=== PATIENT | female | born 1970 | race Caucasian/White ===

== ENCOUNTER 2018-09-22 01:49 | Emergency (ER) | payer MEDICARE, MEDICAID ==
[~2018-09-22] VITALS: Ht 162.6 cm; Wt 50.8 kg
[2018-09-22 02:15] VITALS: BP 122/90
[2018-09-22] MEDS ORDERED: KETOROLAC 60 MG/2 ML VIAL IM STA (02:20)
--- NOTE | 2018-09-22 02:29 | ED Back Pain ---
General Chief Complaint: Back Problems Stated Complaint: BACK PAIN Nursing Triage Note: Woke up at midnight with severe lower back pain. Pain is shooting down her right leg. Spinal cord stimulator recently placed in June. Nursing Sepsis Screen: No Definite Risk Source of Information: Patient, Family Exam Limitations: No Limitations History of Present Illness Date Seen by Provider: Sep 22, 2018 Time Seen by Provider: 02:15 Initial Comments 48 yr old female with chronic back pain with spinal cord stimulator placed Jun 2018 presents with worsened back pain radiating down right leg since midnight. She is unable to recall any injury or strain recently. She states that she has not had any bowel or bladder function impairment. No fever/chills, N/V, respiratory or other symptoms. She initially stated that she had not had any pain since the stimulator was placed but when I was explaining that we were going to give her a injection of Toradol, she states that she had an injection of Toradol a couple of weeks ago for similar pain. She declines any IV or phlebotomy due to problems with vein access in the past. She states that she had a UTI recently but also declines urine testing. Allergies and Home Medications Allergies Coded Allergies: Sulfa (Sulfonamide Antibiotics) (Verified Allergy, Unknown, 09/22/18) butorphanol (Verified Allergy, Unknown, 09/22/18) codeine (Verified Allergy, Unknown, 09/22/18) Patient Home Medication List Home Medication List Reviewed: Yes Review of Systems Constitutional: see HPI EENTM: no symptoms reported Respiratory: no symptoms reported Cardiovascular: no symptoms reported Gastrointestinal: No abdominal pain, No diarrhea, No dysphagia, No hematemesis , No jaundice, No melena, No nausea, No vomiting Genitourinary: no symptoms reported Musculoskeletal: see HPI Skin: no symptoms reported Psychiatric/Neurological: No Symptoms Reported Past Fbcchsk-Xzusyx-Eenefq Hx Past Med/Social Hx: Reviewed Nursing Past Med/Soc Hx Patient Social History Alcohol Use: Denies Use Recreational Drug Use: No Smoking Status: Current Everyday Smoker Type Used: Cigarettes 2nd Hand Smoke Exposure: Yes Recent Foreign Travel: No Contact w/Someone Who Travel: No Recent Infectious Disease Expo: No Recent Hopitalizations: No Immunizations Up To Date Tetanus Booster (TDap): Less than 5yrs Seasonal Allergies Seasonal Allergies: No Past Medical History Surgeries: Yes Gallbladder, Hysterectomy, Tonsillectomy Respiratory: No Cardiac: No Neurological: Yes Headaches /Migraines : No Hx : 3 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 oz. 50.714278qd; BMI Method:Stated General Appearance: Anxious, Cachetic HEENT: PERRL/EOMI, TMs Normal, Normal ENT Inspection, Pharynx Normal Neck: Full Range of Motion, Normal Inspection, Non Tender, Supple Cardiovascular: Regular Rate, Rhythm, No Edema, No Gallop, No JVD, No Murmur, Normal Peripheral Pulses Respiratory: Chest Non Tender, Lungs Clear, No Accessory Muscle Use, No Respiratory Distress, Decreased Breath Sounds Peripheral Pulses: 2+ Carotid (R), 2+ Carotid (L) Gastrointestinal: Normal Bowel Sounds, No Organomegaly, No Pulsatile Mass, Non Tender, Soft Back: Other (healed midline and right lateral incision. tender to palpation right SI region. 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 as Tested Skin: Normal Color, Warm/Dry Lymphatic: No Adenopathy Progress/Results/Core Measures Results/Orders My Orders Orders - ZAINA DRISCOLL MD Lumbar Spine 2 Or 3 View (09/22/18 02:20) Ketorolac Injection (Toradol Injection) (09/22/18 02:20) Promethazine Injection (Phenergan Injec (09/22/18 02:30) Medications Given in ED Current Medications Medications Dose Ordered Sig/Shea Route Start Time Stop Time Status Last Admin Dose Admin Promethazine HCl 25 mg ONCE ONCE IM 09/22/18 02:30 09/22/18 02:31 DC 09/22/18 02:31 25 MG Vital Signs/I&O 09/22/18 01:59 Temp 97.5 Pulse 94 Resp 20 B/P (MAP) 127/87 (100) Pulse Ox 97 Blood Pressure Mean: 100 Progress Progress Note : Time: 02:31 Progress Note Pt's work up limited by her refusal of blood or urine testing. She does not appear toxic at all. She reports normal functioning of her stimulator. A Butran patch was noted on her flank. Will obtain a plain film to look for any apparent issue with stimulator and give Toradol/Phenergan for current sx. She understands and agrees to limitation and risks of this evaluation based on her wishes. 0300 Pain much improved after Toradol and Phenergan. She would like to go home and follow up with [facility] tomorrow. Diagnostic Imaging Diagonstic Imaging: Xray Plain Films/CT/US/NM/MRI: other (lumbar spine) Comments L/S spine: spinal cord stimulator without apparent acute change. JDO Reviewed: Reviewed by Me Departure Impression Primary Impression: Sciatica Qualified Codes: M54.31 - Sciatica, right side Additional Impression: Chronic back pain Qualified Codes: M54.41 - Lumbago with sciatica, right side; G89.29 - Other chronic pain Disposition: 01 HOME, SELF-CARE Condition: Improved Departure-Patient Inst. Decision time for Depature: 03:04 Patient Instructions: Low Back Pain (DC), Radiculopathy (DC) Add. Discharge Instructions: Follow up with [facility] tomorrow as planned. All discharge instructions reviewed with patient and/or family. Voiced understanding. ZAINA DRISCOLL MD Sep 22, 2018 02:29
[2018-09-22 02:30] VITALS: BP 122/73
[2018-09-22] MEDS ORDERED: PROMETHAZINE INJ 25 MG/ML (PHENERGAN) AMP IM ONE (02:30)
[2018-09-22 03:10] VITALS: BP 100/75
--- NOTE | 2018-09-22 07:06 | Diagnostic Imaging Report ---
INDICATION: Spinal cord stimulator. Back pain. FINDINGS: Stimulator device radiographically appeared unremarkable. Lumbar body heights are maintained. The alignment anatomic. The disc spaces preserved. There is lower lumbar facet arthrosis. Paddles extend to the lower T-spine above the [id number]. IMPRESSION: Lumbar spine itself appeared intact. Partial visualization of stimulator apparatus unremarkable where seen. Dictated by: Dictated on workstation # [id number]
== END 2018-09-22 03:10 | disposition home or self-care (01) ==
LOC: MERGE 01:54 → ER FS 01:54 → UNMERGE 01:54 → ER FS 03:10
DX: M54.41 Lumbago with sciatica, right side (principal); G89.29 Other chronic pain; G43.909 Migraine, unspecified, not intractable, without status migrainosus; F31.9 Bipolar disorder, unspecified; F17.210 Nicotine dependence, cigarettes, uncomplicated; Z92.21 Personal history of antineoplastic chemotherapy; Z90.710 Acquired absence of both cervix and uterus; Z87.448 Personal history of other diseases of urinary system; Z85.850 Personal history of malignant neoplasm of thyroid; Z90.89 Acquired absence of other organs; Z88.2 Allergy status to sulfonamides; Z88.5 Allergy status to narcotic agent; Z88.8 Allergy status to other drugs, medicaments and biological substances; Z87.440 Personal history of urinary (tract) infections
CPT/HCPCS: 72100; 96372

== ENCOUNTER 2019-01-20 20:37 | Inpatient (IN) | payer MEDICARE, MEDICAID ==
[~2019-01-20] VITALS: Ht 162.6 cm; Wt 46.4 kg
--- NOTE | 2019-01-20 20:45 | NUR ---
PATIENT TRIAGED AND PLACED IN FAMILY ROOM FOR COMFORT, VITAL SIGNS ARE STABLE FOLLOWS. 98.6 PULSE 83 RESP 20 B/P 98/63 O2 99 PAIN 5/10 WILL CONTINUE TO MONITOR UNTIL ROOM BECOMES AVAILABLE THEN WILL BE MOVED TO TREATMENT ROOM .
[2019-01-20] MEDS ORDERED: FAMOTIDINE 20MG/2ML IV (PEPCID) IVP ONE (22:00)
[2019-01-20] MEDS ORDERED: ONDANSETRON 4 MG/2 ML (SDV) Z0FRAN IVP ONE (22:00)
[2019-01-20] MEDS ORDERED: PROCHLORPERAZINE 10 MG/2ML INJ (COMPAZINE) IV ONE (22:00)
[2019-01-20] MEDS ORDERED: NS IV 1000 ML 1,000 ML IV SCH (22:00)
--- NOTE | 2019-01-20 22:00 | ED Abdominal Pain ---
General Stated Complaint: FACE AND ARM NUMBNESS, DIZZY,VOMITING, SOB Source of Information: Patient Exam Limitations: No Limitations History of Present Illness Date Seen by Provider: Jan 20, 2019 Time Seen by Provider: 21:30 Initial Comments Patient is a 48-year-old female with history of anxiety, marijuana use and cyclic vomiting syndrome who presents with nausea vomiting and diarrhea intermittent for the past 2-3 days with failure to keep nausea medication down. Patient also reports mild diffuse colicky upper abdominal pain. No hematemesis, coffee-ground emesis bloody stools or black tarry stools. Symptoms similar to cyclic vomiting syndrome which has been ongoing for the past 6 months. Patient reports a 31 pound weight loss during this time. Patient also reports left-sided chest pain radiating to left shoulder with numbness and left arn, swollen left side of face. Patient also reports increased anxiety as she has recently had to move from her home to due to concerns for personal safety. Patient is now staying with her daughter. Denies history of CAD. Patient also recently started on Macrobid for treating of lower urinary tract infection. Reports symptoms since improved. Previous cholecystectomy. No other acute symptoms or complaints. Patient states she is underwent extensive GI testing at the past 6 weeks including upper and lower endoscopy and polyp biopsy. Timing/Duration: 1-3 Hours, 2-3 Days Severity/Quality: Moderate Location: Epigastric Radiation: No Radiation Activities at Onset: Rest Associated Symptoms: Chest Pain, Nausea/Vomiting, Weakness Allergies and Home Medications Allergies Coded Allergies: Sulfa (Sulfonamide Antibiotics) (Verified Allergy, Unknown, 09/22/18) butorphanol (Verified Allergy, Unknown, 09/22/18) codeine (Verified Allergy, Unknown, 09/22/18) Patient Home Medication List Home Medication List Reviewed: Yes Review of Systems Review of Systems Constitutional: see HPI EENTM: See HPI Respiratory: See HPI Cardiovascular: See HPI Genitourinary: See HPI Musculoskeletal: see HPI Skin: see HPI Psychiatric/Neurological: Anxiety Endocrine: No Symptoms Reported Hematologic/Lymphatic: No Symptoms Reported Past Xueqxkr-Xxibpn-Qaprna Hx Past Med/Social Hx: Reviewed Nursing Past Med/Soc Hx Patient Social History Type Used: Cigarettes 2nd Hand Smoke Exposure: Yes Recent Foreign Travel: No Contact w/Someone Who Travel: No Recent Hopitalizations: No Immunizations Up To Date Tetanus Booster (TDap): Less than 5yrs Seasonal Allergies Seasonal Allergies: No Past Medical History Surgeries: Yes (Bilateral carpal tunnel, Nevro HF10 Spinal Cord Stimulator, Arthroscopy Rt) Section, Gallbladder, Hysterectomy, Tonsillectomy Respiratory: No Cardiac: No Neurological: Yes Headaches /Migraines 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 oz. 50.569030ff; BMI Method:Stated General Appearance: WD/WN, no apparent distress HEENT: PERRL/EOMI, normal ENT inspection, pharynx normal Neck: supple Respiratory: chest non-tender, lungs clear Cardiovascular: normal peripheral pulses, regular rate, rhythm Gastrointestinal: soft, tenderness (diffuse epigastric pain, tenderness) Extremities: normal range of motion Neurologic/Psychiatric: gang rider II-XII nml as tested, no motor/sensory deficits, alert, oriented x 3 Skin: warm/dry Focused Exam Sepsis Stage: Ruled Out Progress/Results/Core Measures Results/Orders Lab Results Laboratory Tests Test 01/20/19 22:20 01/20/19 22:53 Range/Units Urine Color YELLOW Urine Clarity CLEAR Urine pH 6.5 5-9 Urine Specific [place] <=1.005 1.016-1.022 Urine Protein NEGATIVE NEGATIVE Urine Glucose (UA) NEGATIVE NEGATIVE Urine Ketones NEGATIVE NEGATIVE Urine Nitrite NEGATIVE NEGATIVE Urine Bilirubin NEGATIVE NEGATIVE Urine Urobilinogen NORMAL NORMAL MG/DL Urine Leukocyte Esterase TRACE NEGATIVE Urine RBC (Auto) NEGATIVE NEGATIVE White Blood Count 15.0 H 4.3-11.0 10^3/uL Red Blood Count 4.58 4.35-5.85 10^6/uL Hemoglobin 15.1 11.5-16.0 G/DL Hematocrit 46 35-52 % Mean Corpuscular Volume 99 80-99 FL Mean Corpuscular Hemoglobin 33 25-34 PG Mean Corpuscular Hemoglobin Concent 33 32-36 G/DL Red Cell Distribution Width 13.9 10.0-14.5 % Platelet Count 184 130-400 10^3/uL Mean Platelet Volume 12.6 H 7.4-10.4 FL Neutrophils (%) (Auto) 79 H 42-75 % Lymphocytes (%) (Auto) 16 12-44 % Monocytes (%) (Auto) 4 0-12 % Eosinophils (%) (Auto) 1 0-10 % Basophils (%) (Auto) 0 0-10 % Neutrophils # (Auto) 11.9 H 1.8-7.8 X 10^3 Lymphocytes # (Auto) 2.3 1.0-4.0 X 10^3 Monocytes # (Auto) 0.5 0.0-1.0 X 10^3 Eosinophils # (Auto) 0.1 0.0-0.3 10^3/uL Basophils # (Auto) 0.0 0.0-0.1 10^3/uL Neutrophils % (Manual) 81 % Lymphocytes % (Manual) 14 % Monocytes % (Manual) 5 % Blood Morphology Comment NORMAL Sodium Level 143 135-145 MMOL/L Potassium Level 3.4 L 3.6-5.0 MMOL/L Chloride Level 102 98-107 MMOL/L Carbon Dioxide Level 23 21-32 MMOL/L Anion Gap 18 H 5-14 MMOL/L Blood Urea Nitrogen 5 L 7-18 MG/DL Creatinine 0.61 0.60-1.30 MG/DL Estimat Glomerular Filtration Rate > 60 BUN/Creatinine Ratio 8 Glucose Level 81 70-105 MG/DL Calcium Level 9.8 8.5-10.1 MG/DL Corrected Calcium 9.5 8.5-10.1 MG/DL Magnesium Level 1.7 L 1.8-2.4 MG/DL Total Bilirubin 0.4 0.1-1.0 MG/DL Aspartate Amino Transf (AST/SGOT) 18 5-34 U/L Alanine Aminotransferase (ALT/SGPT) 11 0-55 U/L Alkaline Phosphatase 77 40-136 U/L Troponin T 15 H <=10 NG/L Total Protein 7.6 6.4-8.2 GM/DL Albumin 4.4 3.2-4.5 GM/DL Lipase 14 8-78 U/L Serum Test, Qualitative NEGATIVE NEGATIVE My Orders Orders - CARDOZA,RACHEL DO Cbc With Automated Diff (01/20/19 21:46) Comprehensive Metabolic Panel (01/20/19 21:46) Lipase (01/20/19 21:46) Urinalysis Dipstick Only (01/20/19 21:46) Hcg,Qualitative Serum (01/20/19 21:46) Ns Iv 1000 Ml (Sodium Chloride 0.9%) (01/20/19 22:00) Magnesium (01/20/19 21:46) Famotidine Injection (Pepcid Injection) (01/20/19 22:00) Prochlorperazine Injection (Compazine In (01/20/19 22:00) Ondansetron Injection (Zofran Injectio (01/20/19 22:00) Troponin T (01/20/19 22:00) Ekg Tracing (01/20/19 22:00) Manual Differential (01/20/19 22:53) Troponin T (01/21/19 00:53) Aspirin Chewable Tablet (Baby Aspirin Ch (01/21/19 00:15) Chest 1 View Ap/Pa Only (01/21/19 00:02) Metoprolol Succinate (Xl) Tab (Toprol Xl (01/21/19 09:00) Enoxaparin Injection (Lovenox Injection) (01/21/19 00:15) Medications Given in ED Current Medications Medications Dose Ordered Sig/Shea Route Start Time Stop Time Status Last Admin Dose Admin Aspirin 324 mg ONCE ONCE PO 01/21/19 00:15 01/21/19 00:16 01/21/19 00:15 324 MG Famotidine 20 mg ONCE ONCE IVP 01/20/19 22:00 01/20/19 22:01 DC 01/20/19 22:48 20 MG Prochlorperazine Edisylate 10 mg ONCE ONCE IV 01/20/19 22:00 01/20/19 22:01 DC 01/20/19 22:48 10 MG Vital Signs/I&O 01/20/19 21:45 Temp 98.6 Pulse 84 Resp 18 B/P (MAP) 118/85 (96) Pulse Ox 98 01/21/19 00:00 Intake Total 1000 ml Balance 1000 ml Departure Communication (Admissions) Time/Spoke to Admitting Phy: 23:55 Time/Spoke to Consulting Phy: 23:55 Chest pain resolved with treatment in the ED. Reviewed EKG she reveals T-wave inversions in anterior lateral leads. Aspirin, beta bindu and Lovenox given. Dr. Espinosa excepts patient at [facility]. notified of consult. Impression Primary Impression: Acute coronary insufficiency syndrome Additional Impression: Nausea & vomiting Disposition: ADMITTED INPATIENT Condition: Stable Admissions Decision to Admit Reason: Admit from ER (General) Decision to Admit/Date: Jan 20, 2019 Time/Decision to Admit Time: 23:50 Transfer Time Spoke to Accepting Phy: 23:55 (Dr. Espinosa) Method of Transfer: EMS Departure-Patient Inst. Referrals: GABRIEL SHIPMAN APRN (PCP) Primary Care Physician MANISHA,LOCAL PHYSICIAN (Family) Primary Care Physician RACHEL CARDOZA DO Jan 20, 2019 22:00
--- NOTE | 2019-01-20 22:15 | NUR ---
PATIENT ESCORTED TO RESTROOM VIA WHEELCHAIR
[2019-01-20 22:32] LABS: BILIRUBIN,URINE NEGATIVE (NEGATIVE); CLARITY,URINE CLEAR; COLOR,URINE YELLOW; GLUCOSE, URINE (UA) NEGATIVE (NEGATIVE); KETONES,URINE NEGATIVE (NEGATIVE); NITRITE,URINE NEGATIVE (NEGATIVE); PH,URINE 6.5 (5-9); PROTEIN,URINE NEGATIVE (NEGATIVE); UROBILINOGEN,URINE NORMAL (NORMAL)
[2019-01-20 22:33] LABS: LEUKOCYTE ESTERASE ,URINE TRACE (NEGATIVE)
[2019-01-20 23:11] LABS: BASOPHILS % (AUTO) 0 % (0-10); EOSINOPHILS % (AUTO) 1 % (0-10); HEMATOCRIT 46 % (35-52); HEMOGLOBIN 15.1 G/DL (11.5-16.0); LYMPHOCYTES % (AUTO) 16 % (12-44); MEAN CORPUSCULAR HEMOGLOBIN 33 PG (25-34); MEAN CORPUSCULAR HGB CONC 33 G/DL (32-36); MEAN CORPUSCULAR VOLUME 99 FL (80-99); MEAN PLATELET VOLUME 12.6 FL (7.4-10.4); MONOCYTES % (AUTO) 4 % (0-12); NEUTROPHILS % (AUTO) 79 % (42-75); PLATELET COUNT 184 10^3/uL (130-400); RED CELL DISTRIBUTION WIDTH 13.9 % (10.0-14.5)
[2019-01-20 23:12] LABS: EOSINOPHILS # (AUTO) 0.1 10^3/uL (0.0-0.3); LYMPHOCYTES # (AUTO) 2.3 X 10^3 (1.0-4.0); MONOCYTES # (AUTO) 0.5 X 10^3 (0.0-1.0); NEUTROPHILS # (AUTO) 11.9 X 10^3 (1.8-7.8)
[2019-01-20 23:33] LABS: ALANINE AMINOTRANSFERASE 11 U/L (0-55); ALBUMIN 4.4 GM/DL (3.2-4.5); ALKALINE PHOSPHATASE 77 U/L (40-136); BILIRUBIN,TOTAL 0.4 MG/DL (0.1-1.0); BUN/CREATININE RATIO 8; CALCIUM 9.8 MG/DL (8.5-10.1); CARBON DIOXIDE 23 MMOL/L (21-32); CHLORIDE 102 MMOL/L (98-107); CREATININE SERUM 0.61 MG/DL (0.60-1.30); GFR ESTIMATED > 60; GLUCOSE 81 MG/DL (70-105); LIPASE 14 U/L (8-78); MAGNESIUM 1.7 MG/DL (1.8-2.4); POTASSIUM 3.4 MMOL/L (3.6-5.0); SODIUM 143 MMOL/L (135-145); TOTAL PROTEIN 7.6 GM/DL (6.4-8.2)
[2019-01-20 23:40] LABS: LYMPHOCYTES % (MANUAL) 14 %; MONOCYTES % (MANUAL) 5 %; NEUTROPHILS % (MANUAL) 81 %; RBC MORPH NORMAL
--- NOTE | 2019-01-20 23:40 | NUR ---
IN ROOM TO STOP FLUIDS, PATIENT VERBALIZES SHE IS FEELING BETTER AND DENIES NAUSEA AT THIS TIME. CALL LIGHT IN REACH WILL CONTINUE TO MONITOR.
[2019-01-21] VITALS (7 sets, daily range): BP systolic 103–135; BP diastolic 63–88
[2019-01-21] MEDS ORDERED: ENOXAPARIN 60 MG/0.6 ML (LOVENOX) SYR SC ONE (00:15)
[2019-01-21] MEDS ORDERED: ASPIRIN 81 MG CHEW (CHILDREN'S ASA) PO ONE (00:15)
--- NOTE | 2019-01-21 02:00 | NUR ---
WILLIAM ESTRADA admitted to room 417-1, with an admitting diagnosis of ACUTE CHEST PAIN, on 01/21/19 from [facility] via EMS, accompanied by incendiary powder mixer .WILLIAM ESTRADA introduced to surroundings, call light, bed controls, phone, TV, temperature control, lights, meal times, smoking policy, visitor policy, side rail policy, bathrooms and showers.
[2019-01-21] MEDS ORDERED: D5 1/2 NS 1000 ML IV SOLUTION 1,000 ML IV ONE (02:04)
[2019-01-21] MEDS ORDERED: D5 1/2 NS 1000 ML IV SOLUTION 1,000 ML IV SCH (03:00)
[2019-01-21] MEDS ORDERED: ONDANSETRON 4 MG/2 ML (SDV) Z0FRAN IV PRN (03:00)
[2019-01-21 04:00] LABS: BASOPHILS % (AUTO) 0 % (0-10); EOSINOPHILS # (AUTO) 0.2 10^3/uL (0.0-0.3); EOSINOPHILS % (AUTO) 2 % (0-10); HEMATOCRIT 35 % (35-52); HEMOGLOBIN 11.8 G/DL (11.5-16.0); LYMPHOCYTES # (AUTO) 1.9 X 10^3 (1.0-4.0); LYMPHOCYTES % (AUTO) 19 % (12-44); MEAN CORPUSCULAR HEMOGLOBIN 33 PG (25-34); MEAN CORPUSCULAR HGB CONC 34 G/DL (32-36); MEAN CORPUSCULAR VOLUME 96 FL (80-99); MEAN PLATELET VOLUME 12.5 FL (7.4-10.4); MONOCYTES # (AUTO) 0.5 X 10^3 (0.0-1.0); MONOCYTES % (AUTO) 5 % (0-12); NEUTROPHILS # (AUTO) 7.5 X 10^3 (1.8-7.8); NEUTROPHILS % (AUTO) 74 % (42-75); PLATELET COUNT 141 10^3/uL (130-400); WHITE BLOOD COUNT 10.1 10^3/uL (4.3-11.0)
[2019-01-21 04:18] LABS: BUN/CREATININE RATIO 5; CALCIUM 8.4 MG/DL (8.5-10.1); CARBON DIOXIDE 20 MMOL/L (21-32); CHLORIDE 109 MMOL/L (98-107); GFR ESTIMATED > 60; GLUCOSE 100 MG/DL (70-105); POTASSIUM 3.4 MMOL/L (3.6-5.0); SODIUM 139 MMOL/L (135-145)
--- OUTSIDE RECORDS SUMMARY | 2019-01-21 06:44 | XMS REPORT | Continuity of Care Document ---
Author Organization Unknown Address Unknown Allergies There is no data. Medications There is no data. Problems There is no data. Procedures There is no data. Results Test Result Range AMYLASE - 11/16/18 10:30 AMYLASE 25 U/L 21-101 CULTURE, STOOL - 11/18/18 12:00 SALMONELLA AND SHIGELLA, CULTURE NRG CULTURE, URINE - 01/13/19 18:00 CULTURE, URINE, ROUTINE NRG Encounters ACCT No. Visit Date/Time Discharge Status Pt. Type Provider Facility Loc./Unit Complaint [id number] 01/19/2019 13:40:00 ACT Outpatient GABRIEL SHIPMAN [facility] [id number] 01/13/2019 16:00:00 Document Registration [id number] 11/16/2018 10:00:00 Document Registration [id number] 11/10/2018 11:30:00 Document Registration
--- OUTSIDE RECORDS SUMMARY | 2019-01-21 06:44 | XMS REPORT ---
Author Author GABRIEL SHIPMAN [facility] [place] Address [address] [place] [address] Care Team Providers [employer] Glazer Name Role Phone GABRIEL SHIPMAN Unavailable PROBLEMS Type Condition ICD9-CM Code [id number] Code Onset Dates Condition Status SNOMED Code Problem Chronic fatigue R53.82 Active 16217054 Problem Chronic pain G89.29 Active 03671461 Problem Lumbago with sciatica, left side M54.42 Active 731959758 Problem Other chronic pain G89.29 Active 52372962 ALLERGIES No Information ENCOUNTERS Encounter Location Date Diagnosis [facility] [address] Oct, [address] [address] Oct, Breast lump in female N63.[address] [address] Oct, Breast lump N63.[address] [address] Oct, Breast lump in female N63.0 [facility] [address] Oct, [address] [address] Oct, [facility] [id number] [place] [address] Oct, Abdominal pain R10.[address] [address] Oct, Generalized abdominal pain R10.84 and Chronic pain G89.29 [facility] [id number] [place] [address] Oct, [facility] [address] Oct, Breast lump in female N63.[address] [address] Oct, [address] [address] Oct, [address] [address] Oct, [address] [address] Oct, Cachexia R64 and Lumbago with sciatica, left side M54.[address] [address] Sep, [address] [address] Sep, [address] [address] Sep, Diarrhea, unspecified type R19.[address] [address] Sep, [address] [address] Sep, Vomiting, unspecified R11.10 ; Generalized abdominal pain R10.84 and Viral gastroenteritis A08.[address] [address] Sep, [address] [address] Aug, Lumbago with sciatica, left side M54.[address] [address] Aug, Urinary pain R30.9 ; Hematuria R31.9 ; Leukocytes in urine R82.998 ; Acute cystitis with hematuria N30.01 ; Lumbago with sciatica, left side M54.42 ; Other chronic pain G89.29 and Well woman exam (no gynecological exam) Z00.[address] [address] Aug, IMMUNIZATIONS No Known Immunizations SOCIAL HISTORY Never Assessed REASON FOR VISIT medication PLAN OF CARE VITAL SIGNS MEDICATIONS Medication Instructions Dosage Frequency Start Date End Date Duration Status Butrans 20 MCG/HR Transdermal once weekly on Fridays 1 patch to skin 28 days Active RESULTS No Results PROCEDURES No Known procedures INSTRUCTIONS MEDICATIONS ADMINISTERED No Known Medications MEDICAL (GENERAL) HISTORY Type Description Date Medical History Spinal cord stimulator status Medical History Other dorsalgia Medical History Other chronic pain Medical History Cluster headache Medical History Pleurisy Medical History Fibromyalgia Medical History Hormone imbalance Medical History Malignant neoplasm of thyroid gland Medical History Hypothyroidism, unspecified Medical History Bipolar disorder, currently in remission, most recent episode unspecified Medical History Nausea Medical History Abnormal weight loss Surgical History tonsillectomy and adenoidectomy Surgical History hysterectomy Surgical History thyroidectomy, complete Surgical History section Surgical History carpal tunnel release left wrist x 1, right wrist x 2 Surgical History right knee arthroscopy
--- OUTSIDE RECORDS SUMMARY | 2019-01-21 06:44 | XMS REPORT ---
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 Name Role Phone JUAREZ ROLANDO Unavailable PROBLEMS Type Condition ICD9-CM Code VSY90-EA Code Onset Dates Condition Status SNOMED Code Problem Spasm of muscle M62.838 May, 0 55775090 Problem Mid back pain M54.9 Feb, 0 327586492 Problem Gastritis and duodenitis K29.90 Aug, 0 338460810 Problem H/O sciatica Z86.69 Mar, 0 Problem Spondylosis of lumbar region without myelopathy or radiculopathy M47.816 May, 0 64304492 Problem Abnormal weight loss R63.4 Feb, 0 157721316 Problem Sciatica M54.30 December, 0 65794221 Problem Tobacco abuse counseling Z71.6 Nov, 0 041019530 Problem Bulging lumbar disc M51.26 Oct, 0 05659279 Problem Anxiety and depression F41.9 Sep, 0 403551680 Problem Diarrhea R19.7 December, 0 48825976 Problem Acute back pain M54.9 Apr, 0 680270368 Problem Drug withdrawal F19.939 Jan, 0 152830080 Problem Migraine variant with headache 346.20 Jul, 0 584795634 Problem Poor venous access 459.89 December, 0 719258171 Problem Laryngitis, acute J04.0 Mar, 0 9093956 Problem H/O sciatica V12.49 Mar, 0 Problem Folliculitis and perifolliculitis L73.9 Jul, 0 17120908 Problem Bulging lumbar disc 722.10 Oct, 0 53678066 Problem TSH (thyroid-stimulating hormone deficiency) 244.8 Feb, 0 815562775 Problem Acute hemorrhoid 455.6 15 Jan, 2016 0 55895745 Problem Blurry vision, bilateral 368.8 Jul, 0 30330100 Problem TSH (thyroid-stimulating hormone deficiency) E03.8 Feb, 0 36238930 Problem Acute hemorrhoid K64.9 Jan, 0 70285962 Problem Folliculitis and perifolliculitis 704.8 Jul, 0 876899225 Problem Vaginal dryness N89.8 Mar, 0 84548327 Problem Hypokalemia E87.6 Oct, 0 29296187 Problem Acute left-sided back pain with sciatica 724.3 Jun, 0 66392474 Problem Anxiety and depression 300.00 Sep, 0 846870277 Problem Dehydration E86.0 Oct, 0 83403922 Problem Thoracic or lumbosacral neuritis or radiculitis, unspecified PSL6566 Oct, 0 410009153 Problem Acute gastritis without hemorrhage 535.00 Jan, 0 72702422 Problem Other and unspecified closed fractures of proximal end of radius (alone) S52.109A Mar, 0 92983356 Problem Spondylosis of lumbar region without myelopathy or radiculopathy 721.3 May, 0 02639737 Problem Tobacco abuse counseling V65.42 Nov, 0 108866584 Problem Acute midline thoracic back pain 724.1 Sep, 0 008917841 Problem Status post hemorrhoidectomy Z98.890 Mar, 0 093211295 Problem Diarrhea 787.91 December, 0 58213627 Problem Status post hemorrhoidectomy V45.89 Mar, 0 27329341 Problem Other and unspecified closed fractures of proximal end of radius (alone) 813.07 Mar, 0 20755468 Problem Migraine variant with headache G43.809 Jul, 0 141325173 Problem Abnormal weight loss 783.21 Feb, 0 645466209 Problem Laryngitis, acute 464.00 Mar, 0 0280417 Problem Mid back pain 724.5 Feb, 0 428105605 Problem Low serum T4 level R79.89 Sep, 0 927820036 Problem Hypokalemia 276.8 Oct, 0 15296390 Problem Low serum T4 level 794.5 Sep, 0 710930464 Problem Vaginal dryness 625.8 Mar, 0 58173508 Problem Neck pain on right side 723.1 Jul, 0 03297343 Problem Skin lesion 709.9 December, 0 84214965 Problem Acute back pain 724.5 Apr, 0 965508425 Problem Leukocytosis 288.60 Jan, 0 068235056 Problem Acute left-sided back pain with sciatica M54.42 Jun, 0 67317891 Problem Acute cystitis without hematuria 595.0 Jan, 0 98573611 Problem Reactive depression (situational) F32.9 Aug, 0 04529374 Problem Poor venous access I87.8 December, 0 775747226 Problem Acute gastritis without hemorrhage K29.00 Jan, 0 45471331 Problem Skin lesion L98.9 December, 0 05724126 Problem Blurry vision, bilateral H53.8 Jul, 0 66486934 Problem Dehydration 276.51 Oct, 0 63002735 Problem Lumbago M54.5 December, 0 132482404 Problem Leukocytosis D72.829 Jan, 0 931283249 Problem Acute midline thoracic back pain M54.6 Sep, 0 776555865 Problem Neck pain on right side M54.2 Jul, 0 62283822 Problem Cough R05 Feb, 0 77979632 Problem Acute cystitis without hematuria N30.00 Jan, 0 46808898 Problem Lumbago with sciatica, left side M54.42 Active 662955828 Problem Hypothyroidism (acquired) E03.9 Active 768107335 Problem Gastritis and duodenitis 535.50 Aug, 0 344603192 Problem Cough 786.2 Feb, 0 96043139 Problem Intractable cyclical vomiting with nausea G43.A1 Active 83769123 Problem Nausea with vomiting R11.2 Oct, 0 60260868 Problem Nausea with vomiting 787.01 Oct, 0 34766453 Problem Lumbago 724.2 December, 0 999998856 Problem Reactive depression (situational) 300.4 Aug, 0 81947085 Problem Spasm of muscle 728.85 May, 0 53254049 Problem Other chronic pain G89.29 Active 71461739 Problem Sciatica 724.3 December, 0 55932469 Problem Chronic fatigue R53.82 Active 57909163 Problem Thoracic or lumbosacral neuritis or radiculitis, unspecified 724.4 Oct, 0 384601816 Problem Chronic pain G89.29 Active 44496750 Problem Mood disorder F39 Active 24457530 Problem Drug withdrawal 292.0 Jan, 0 785811923 ALLERGIES No Information ENCOUNTERS Encounter Location Date Diagnosis [address] [address] Nov, TSH (thyroid-stimulating hormone deficiency) E03.8 [facility] [address] [address] Nov, [address] [address] Nov, [address] [address] Nov, [address] [address] Nov, Well woman exam (no gynecological exam) Z00.00 and Diarrhea, unspecified type R19.[address] [address] Nov, [facility] [address] [address] Nov, [address] [address] Nov, [address] [address] Nov, Intractable cyclical vomiting with nausea G43.A1 ; Chronic pain G89.29 ; Hypothyroidism (acquired) E03.9 ; Mood disorder F39 and Well woman exam (no gynecological exam) Z00.[address] [address] Nov, Intractable cyclical vomiting with nausea G43.A1 [address] [address] Oct, Breast lump in female N63.[address] [place] [address] Oct, Breast lump N63.0 [facility] [address] [place] [address], [place] [address] Oct, Breast lump in female N63.0 [facility] [address] [place] [address] Oct, [facility] [place] [address] [place] [address], [place] [address] Oct, [facility] [place] [address] [place] [address], [place] [address] Oct, Abdominal pain R10.9 [facility] [place] [address] [place] [address], [place] [address] Oct, Generalized abdominal pain R10.84 and Chronic pain G89.29 [facility] [place] [address] [place] [address], [place] [address] Oct, [facility] [place] [address] [place] [address], [place] [address] Oct, Breast lump in female N63.0 [facility] [place] [address] [place] [address], [place] [address] Oct, [facility] [place] [address] [place] [address], [place] [address] Oct, [facility] [place] [address] [place] [address], [place] [address] Oct, [facility] [place] [address] [place] [address], [place] [address] Oct, Cachexia R64 and Lumbago with sciatica, left side M54.42 [facility] [place] [address] [place] [address], [place] [address] Sep, [facility] [place] [address] [place] [address], [place] [address] Sep, [facility] [place] [address] [place] [address], [place] [address] Sep, Diarrhea, unspecified type R19.7 [facility] [place] [address] [place], [place] [address]ER [facility] [place] [address] Sep, [facility] [place] [address] [place] [address], [place] [address] Sep, Vomiting, unspecified R11.10 ; Generalized abdominal pain R10.84 and Viral gastroenteritis A08.[address] [address] Sep, [address] [address] Aug, Lumbago with sciatica, left side M54.42 [place] [address] [place] [address] Aug, [address] [address] Aug, Urinary pain R30.9 ; Hematuria R31.9 ; Leukocytes in urine R82.998 ; Acute cystitis with hematuria N30.01 ; Lumbago with sciatica, left side M54.42 ; Other chronic pain G89.29 and Well woman exam (no gynecological exam) Z00.[address] [address] Aug, [place] [id number] [place] [address] Jul, [place] [id number] [place] [address] Jul, [place] [id number] [place] [address] Jun, [place] [id number] [place] [address] May, IMMUNIZATIONS No Known Immunizations SOCIAL HISTORY Never Assessed REASON FOR VISIT med refill PLAN OF CARE VITAL SIGNS MEDICATIONS Medication [...] x 2 Surgical History right knee arthroscopy Hospitalization History surgeries
--- OUTSIDE RECORDS SUMMARY | 2019-01-21 06:45 | XMS REPORT | Continuity of Care Document ---
[...] Status Pt. Type Provider Facility Loc./Unit Complaint [id number] 01/19/2019 13:40:00 [facility] Outpatient GABRIEL SHIPMAN [facility] [id number] 01/13/2019 16:00:00 Document Registration [id number] 11/16/2018 10:00:00 Document Registration [id number] 11/10/2018 11:30:00 Document Registration
--- NOTE | 2019-01-21 06:58 | Diagnostic Imaging Report ---
INDICATION: Nausea and vomiting. No prior examinations are available for comparison. FINDINGS: The heart size, mediastinal configuration, and pulmonary vascularity are within normal limits. There is no pleural effusion, pneumothorax, or pneumonia. The osseous structures are unremarkable. IMPRESSION: No acute cardiopulmonary abnormality. Dictated by: Dictated on workstation # [id number]
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
[2019-01-21] MEDS ORDERED: FAMOTIDINE 20MG/2ML IV (PEPCID) IVP SCH (09:00)
[2019-01-21] MEDS ORDERED: REGADENOSON 0.4 MG/5 ML SYR (LEXISCAN) IV ONE ×2 (09:15→12:52)
--- NOTE | 2019-01-21 10:35 | Short Stay Summary-Hospitalist ---
History of Present Illness HPI/Chief Complaint CC: Chest pain HPI: This is a 48 yoWF pt of Ghassan RIZO with [facility] in [facility] who presented with vague atypical chest pain, cardiology was consulted, echocardiogram and lexiscan will be performed to rule out acute coronary syndrome but likely this has to do with her chronic pain and cyclic vomiting syndrome of which she sees [facility] for and the significant weight loss she has had due to the significant abdominal issues. We will give her Phenergan 12.5 mg IM for the nausea right now and since she is NPO for the lexiscan and then discharge with close follow up with [facility]. Source: patient, RN/MD, old records Exam Limitations: no limitations Date Seen 01/21/19 Time Seen by a Provider: 09:30 Attending Physician Stephanie Espinosa Bradley P Aprn Referring Physician Date of Admission Jan 21, 2019 at 00:10 Home Medications & Allergies Home Medications Reviewed patient Home Medication Reconciliation performed by pharmacy medication reconciliations animal laboratory technician and/or nursing. Patients Allergies have been reviewed. Allergies Allergies Coded Allergies Sulfa (Sulfonamide Antibiotics) (Verified Allergy, Unknown, 01/21/19) butorphanol (Verified Allergy, Unknown, 01/21/19) codeine (Verified Allergy, Unknown, 01/21/19) Past Hawmlkt-Bsymyb-Rpuzav Hx Past Med/Social Hx: Reviewed Nursing Past Med/Soc Hx, Reviewed and Corrections made Patient Social History Marrital Status: single Employed/Student: unemployed Alcohol Use: Denies Use Recreational Drug Use: Yes (HX OF CYCLIC VOMITING SYNDROME) Drug of Choice: MARIJUANA Smoking Status: Current Everyday Smoker Type Used: Cigarettes 2nd Hand Smoke Exposure: Yes Recent Foreign Travel: No Contact w/other who traveled: No Recent Hopitalizations: No Recent Infectious Disease Expo: No Immunizations Up To Date Tetanus Booster (TDap): Less than 5yrs Seasonal Allergies Seasonal Allergies: No Past Medical History Surgeries: Section, Gallbladder, Hysterectomy, Tonsillectomy Neurological: Headaches /Migraines : No Sexually Transmitted Disease: No HIV/AIDS: No Hysterectomy Genitourinary: Kidney Infection, Bladder Infection Gastrointestinal: Irritable Bowel Musculoskeletal: Chronic Back Pain Cancer: Thyroid Did You Recieve Any Treatments: Yes What Type of Treatment Did You: Other Psychosocial: Bipolar History of Blood Disorders: No Family History Cardiovascular disease 19 FATHER Review of Systems Constitutional: see HPI Physical Exam Physical Exam Vital Signs Vital Signs - First Documented 01/20/19 21:45 Temp 98.6 Pulse 84 Resp 18 B/P (MAP) 118/85 (96) Pulse Ox 98 Capillary Refill : Less Than 3 Seconds Height, Weight, BMI Height: 5'4.00" Weight: 102lbs. 3.0oz. 46.966750fx; 17.5 BMI Method:Stated General Appearance: No Apparent Distress, WD/WN, Chronically ill, Cachetic, Thin Eyes: Bilateral Eye Normal Inspection, Bilateral Eye PERRL HEENT: PERRL/EOMI, Normal ENT Inspection, Pharynx Normal Neck: Full Range of Motion, Normal Inspection, Non Tender, Supple, Carotid Bruit Respiratory: Chest Non Tender, Lungs Clear, Normal Breath Sounds, No Accessory Muscle Use, No Respiratory Distress Cardiovascular: Regular Rate, Rhythm, No Edema, No Gallop, No JVD, No Murmur, Normal Peripheral Pulses Gastrointestinal: Normal Bowel Sounds, No Organomegaly, No Pulsatile Mass, Non Tender, Soft Back: Normal Inspection, No CVA Tenderness, No Vertebral Tenderness Extremity: Normal Capillary Refill, Normal Inspection, Normal Range of Motion, Non Tender, No Calf Tenderness, No Pedal Edema Neurologic/Psychiatric: Alert, Oriented x3, No Motor/Sensory Deficits, Normal Mood/Affect Skin: Normal Color, Warm/Dry Lymphatic: No Adenopathy Results Results/Procedures Labs Laboratory Tests 01/20/19 22:53 01/21/19 03:45 Patient resulted labs reviewed. Short Stay Diagnosis Discharge Diagnosis-Short Stay Admission Diagnosis Chest pain atypical and vague Cyclic vomiting syndrome Cachexia Final Discharge Diagnosis Chest pain atypical and vague Cyclic vomiting syndrome Cachexia Conclusion Plan Cardiology appreciated ECHO EST Diagnosis/Problems Diagnosis/Problems (1) Chest pain, atypical Status: Acute Clinical Quality Measures DVT/VTE Risk/Contraindication: Risk Factor Score Per Nursin RFS Level Per Nursing on Admit: 1=Low/No VTE PPX STEPHANIE ESPINOSA DO Jan 21, 2019 10:35
[2019-01-21] MEDS ORDERED: PROMETHAZINE INJ 25 MG/ML (PHENERGAN) AMP IM NR (10:45)
--- NOTE | 2019-01-21 12:14 | NUR ---
Patient to Nuclear department for Lexiscan at 1214 and returned to room 417 at 1420.
[2019-01-21] MEDS ORDERED: CATHETER FLUSH 10 ML SYR IV PRN (12:15)
[2019-01-21] MEDS ORDERED: ONDANSETRON 4 MG/2 ML (SDV) Z0FRAN ONE (13:07)
[2019-01-21] MEDS ORDERED: PREG100C PO (16:09)
[2019-01-21] MEDS ORDERED: ASPI-789 PO (16:09)
[2019-01-21] MEDS ORDERED: QUET50TA PO (16:09)
[2019-01-21] MEDS ORDERED: LEVO175T5 PO (16:09)
[2019-01-21] MEDS ORDERED: UBID1CAP53 PO (16:09)
[2019-01-21] MEDS ORDERED: ESTR1TAB27 PO (16:09)
[2019-01-21] MEDS ORDERED: TIZA2TAB3 PO (16:09)
[2019-01-21] MEDS ORDERED: PROM25TA14 PO (16:09)
[2019-01-21] MEDS ORDERED: FAMO20TA3 PO ×2 (16:09)
[2019-01-21] MEDS ORDERED: NF-LAMO200 PO (16:09)
[2019-01-21] MEDS ORDERED: LEVO500T83 PO (16:09)
[2019-01-21] MEDS ORDERED: BUPR1PAT9 TD (16:37)
[2019-01-21] MEDS ORDERED: ERYT1OIN6 OS (16:37)
[2019-01-21] MEDS ORDERED: VITA1CAP PO (16:37)
[2019-01-21] MEDS ORDERED: PRM12.5SU RC (16:37)
[2019-01-21] MEDS ORDERED: AMIT50TA3 PO (16:45)
[2019-01-21] MEDS ORDERED: NITR100C PO (16:45)
--- NOTE | 2019-01-21 16:46 | NUR ---
HAD A LIST FAXED OVER FROM [facility] [place] AND A LIST FROM [facility]. I WENT OVER THESE LISTS WITH THE PATIENT AND SHE VERIFIED HOW SHE TAKES THEM. SEE LISTS ON CHART FOR MORE DETAILS.
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
--- NOTE | 2019-01-21 19:46 | STRESS TEST ---
DATE OF SERVICE: 01/21/2019 RESTING AND POST REGADENOSON TECHNETIUM-99M TETROFOSMIN SPECT CT IMAGING ORDERING PHYSICIAN: Elidia Douglas APRN PRIMARY PHYSICIAN: Kal Siddiqui APRN. ATTENDING PHYSICIAN: Dr. Espinosa. CLINICAL DIAGNOSIS: Chest pain. Baseline images were carried out after injection of 10.94 mCi technetium-99m Tetrofosmin. This was followed by 0.4 mg regadenoson and 33 mCi technetium-99m Tetrofosmin for stress imaging. The electrocardiogram showed sinus rhythm at baseline. The electrocardiogram showed nonspecific ST abnormality throughout the study. The electrocardiogram did not change significantly with the regadenoson infusion. Review of images at rest and following stress does not indicate any significant perfusion defects consistent with significant myocardial ischemia or infarction. Gated images show normal global left ventricular systolic function and normal regional wall motion. Left ventricular ejection fraction is calculated to be 70%. Left ventricular end diastolic volume is 32 mL. TID is absent (1.16). CONCLUSIONS: 1. No evidence of any significant myocardial ischemia or infarction on this study. 2. Normal regional wall motion. 3. Normal global left ventricular systolic function with a calculated ejection fraction of 70%. 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
== END 2019-01-21 19:30 | disposition home or self-care (01) | DRG 313 ==
LOC: EDUNIT# 20:37 → ER FS 20:38 → 4TH 01-21 00:10
PROVIDERS: ADMIT Internal Medicine; ATTEND Internal Medicine
DX: R07.89 Other chest pain (principal); G43.A0 Cyclical vomiting, in migraine, not intractable; R10.10 Upper abdominal pain, unspecified; R64 Cachexia; N39.0 Urinary tract infection, site not specified; R63.4 Abnormal weight loss; E89.0 Postprocedural hypothyroidism; F17.210 Nicotine dependence, cigarettes, uncomplicated; J44.9 Chronic obstructive pulmonary disease, unspecified; M54.9 Dorsalgia, unspecified; F31.9 Bipolar disorder, unspecified; G43.909 Migraine, unspecified, not intractable, without status migrainosus; F41.9 Anxiety disorder, unspecified; K58.9 Irritable bowel syndrome, unspecified; R20.0 Anesthesia of skin; E87.8 Other disorders of electrolyte and fluid balance, not elsewhere classified; Z86.73 Personal history of transient ischemic attack (TIA), and cerebral infarction without residual deficits; Z96.89 Presence of other specified functional implants; Z90.710 Acquired absence of both cervix and uterus; Z90.49 Acquired absence of other specified parts of digestive tract; Z82.49 Family history of ischemic heart disease and other diseases of the circulatory system
CPT/HCPCS: 36415; 71045; 78452; 80048; 80053; 81002; 83690; 83735; 84484; 84703; 85007; 85025; 85027; 93005; 93017; 93306; 96361; 96372; 96374; 96375

== ENCOUNTER 2019-01-25 20:47 | Emergency (ER) | payer MEDICARE, MEDICAID ==
[~2019-01-25] VITALS: Ht 162.6 cm; Wt 46.3 kg
[~2019-01-25 20:47] MED LIST: AMIT50TA3 PO; ASPI-789 PO; BUPR1PAT9 TD; ERYT1OIN6 OS; ESTR1TAB27 PO; FAMO20TA3 PO; LEVO175T5 PO; LEVO500T83 PO; NF-LAMO200 PO; NITR100C PO; PREG100C PO; PRM12.5SU RC; PROM25TA14 PO; QUET50TA PO; TIZA2TAB3 PO; UBID1CAP53 PO; VITA1CAP PO
--- OUTSIDE RECORDS SUMMARY | 2019-01-25 20:52 | XMS REPORT | Continuity of Care Document ---
[...] Status Pt. Type Provider Facility Loc./Unit Complaint [id number] 01/19/2019 13:40:00 01/19/2019 23:59:59 [facility] Outpatient GABRIEL SHIPMAN [facility] [id number] 01/13/2019 16:00:00 Document Registration [id number] 11/16/2018 10:00:00 Document Registration [id number] 11/10/2018 11:30:00 Document Registration
--- NOTE | 2019-01-25 21:00 | ED General ---
General Stated Complaint: CHEST PAIN; SOB History of Present Illness Date Seen by Provider: Jan 25, 2019 Time Seen by Provider: 20:59 Initial Comments Patient presenting to emergency department for evaluation of chest pain that she says has never gone away since leaving the hospital 4 days ago. Reading the hospitalist and cardiology consultation notes it sounds as if she has had chest pain off and on for 2 months and became worse 2 days prior to her hospital admission stay she presented to the emergency department here at [place] and had some apparent T-wave inversions in the anterolateral leads and was transferred to [place]. She had a Lexiscan an echocardiogram that were both normal and cardiology felt strongly that this was noncardiac pain. She has been seen at [facility] and had extensive GI workup and been diagnosed with cyclic vomiting syndrome. Most of the charts state that she uses marijuana however she denied marijuana use to me. She says marijuana helps her but she has stopped but they're considering starting her on Marinol but have not done this yet. Her pain is pressure left lower chest and left upper quadrant abdomen associated with nausea and vomiting but no shortness of breath or diaphoresis. She is in no obvious distress with normal vital signs. Allergies and Home Medications Allergies Coded Allergies: Sulfa (Sulfonamide Antibiotics) (Verified Allergy, Unknown, 01/21/19) butorphanol (Verified Allergy, Unknown, 01/21/19) codeine (Verified Allergy, Unknown, 01/21/19) Home Medications Amitriptyline HCl 50 Mg Tablet, 25 MG PO HS, (Reported) Aspirin/Acetaminophen/Caffeine 1 Each Tablet, 2 TAB PO Q6-8HR PRN for MIGRAINE, (Reported) Buprenorphine 1 Each Patch.tdwk, 15 MCG TD Fr, (Reported) Erythromycin Base 1 Gm Oint...g., 0 OS QID, (Reported) 10 DAY SUPPLY FILLED 01-17-19 APPLY 1/2 INCH RIBBON Estradiol 1 Mg Tablet, 1 MG PO DAILY, (Reported) Famotidine 20 Mg Tablet, 20 MG PO BID, (Reported) Levocarnitine 500 Mg Tablet, 500 MG PO DAILY, (Reported) Levothyroxine Sodium 175 Mcg Tablet, 175 MCG PO DAILY, (Reported) Nitrofurantoin Macrocrystal 100 Mg Capsule, 100 MG PO Q12H, (Reported) 7 DAY THERAPY FILLED 01-13-19 Pregabalin 100 Mg Capsule, 100 MG PO BID, (Reported) LAST FILLED #84 09-25-18 Promethazine HCl 25 Mg Tablet, 25 MG PO Q12H PRN for NAUSEA/VOMITING-2ND LINE, (Reported) Promethazine HCl 12.5 Mg Supp, 12.5 MG RC Q6H PRN for NAUSEA/VOMITING-2ND LINE, (Reported) Ubidecarenone/Vit E Acetate 1 Each Capsule, 100 MG PO HS, (Reported) Vitamin B Complex 1 Each Capsule, 1 CAP PO HS, (Reported) Patient Home Medication List Home Medication List Reviewed: Yes Review of Systems Review of Systems Constitutional: No chills, No fever; malaise EENTM: no symptoms reported Respiratory: no symptoms reported Cardiovascular: chest pain Gastrointestinal: abdominal pain (LUQ), nausea, vomiting Musculoskeletal: no symptoms reported Skin: no symptoms reported Psychiatric/Neurological: No Symptoms Reported All Other Systems Reviewed Negative Unless Noted: Yes Past Iijjekc-Qaklbg-Plnfqd Hx Patient Social History Drug of Choice: MARIJUANA Type Used: Cigarettes 2nd Hand Smoke Exposure: Yes Recent Foreign Travel: No Contact w/Someone Who Travel: No Recent Hopitalizations: No Immunizations Up To Date Tetanus Booster (TDap): Less than 5yrs Seasonal Allergies Seasonal Allergies: No Past Medical History Surgeries: Yes (Bilateral carpal tunnel, Nevro HF10 Spinal Cord Stimulator, A rthroscopy Rt) Section, Gallbladder, Hysterectomy, Tonsillectomy Respiratory: No Cardiac: No Neurological: Yes Headaches /Migraines 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 Sexually Transmitted Disease: No HIV/AIDS: No Genitourinary: Yes Kidney Infection, Bladder Infection Gastrointestinal: No Irritable Bowel Musculoskeletal: Yes Chronic Back Pain Endocrine: No HEENT: No Cancer: Yes Thyroid Did You Recieve Any Treatments: Yes What Type of Treatment Did You: Other Psychosocial: Yes Bipolar Integumentary: No Blood Disorders: No Family Medical History Cardiovascular disease 19 FATHER Physical Exam Vital Signs Vital Signs - First Documented 01/25/19 21:44 Temp 96.6 Pulse 84 Resp 15 B/P (MAP) 112/85 (94) Pulse Ox 99 O2 Delivery Room Air Capillary Refill : Height, Weight, BMI Height: 5'4.00" Weight: 102lbs. 3.0oz. [id number]; 17.5 BMI Method:Stated General Appearance: No Apparent Distress, Chronically ill, Cachetic HEENT: PERRL/EOMI Neck: Normal Inspection Respiratory: Normal Breath Sounds, No Accessory Muscle Use, No Respiratory Distress Cardiovascular: Regular Rate, Rhythm, Normal Peripheral Pulses Gastrointestinal: Soft; No Guarding, No Rebound; Tenderness (LUQ) Back: Normal Inspection Extremity: Normal Capillary Refill Neurologic/Psychiatric: Alert, Oriented x3 Skin: Normal Color, Warm/Dry Progress/Results/Core Measures Suspected Sepsis SIRS Temperature: Pulse: Respiratory Rate: Laboratory Tests 01/25/19 21:20: White Blood Count 9.2 Blood Pressure / Mean: Laboratory Tests 01/25/19 21:20: Creatinine 0.60, Platelet Count 213, Total Bilirubin 0.4 Results/Orders Lab Results Laboratory Tests Test 01/25/19 21:20 01/25/19 21:57 Range/Units White Blood Count 9.2 4.3-11.0 10^3/uL Red Blood Count 4.22 L 4.35-5.85 10^6/uL Hemoglobin 13.8 11.5-16.0 G/DL Hematocrit 41 35-52 % Mean Corpuscular Volume 97 80-99 FL Mean Corpuscular Hemoglobin 33 25-34 PG Mean Corpuscular Hemoglobin Concent 34 32-36 G/DL Red Cell Distribution Width 14.0 10.0-14.5 % Platelet Count 213 130-400 10^3/uL Mean Platelet Volume 12.5 H 7.4-10.4 FL Neutrophils (%) (Auto) 47 42-75 % Lymphocytes (%) (Auto) 41 12-44 % Monocytes (%) (Auto) 5 0-12 % Eosinophils (%) (Auto) 6 0-10 % Basophils (%) (Auto) 1 0-10 % Neutrophils # (Auto) 4.3 1.8-7.8 X 10^3 Lymphocytes # (Auto) 3.8 1.0-4.0 X 10^3 Monocytes # (Auto) 0.5 0.0-1.0 X 10^3 Eosinophils # (Auto) 0.5 H 0.0-0.3 10^3/uL Basophils # (Auto) 0.1 0.0-0.1 10^3/uL D-Dimer 0.30 0.00-0.49 UG/ML Sodium Level 139 135-145 MMOL/L Potassium Level 3.7 3.6-5.0 MMOL/L Chloride Level 99 98-107 MMOL/L Carbon Dioxide Level 25 21-32 MMOL/L Anion Gap 15 H 5-14 MMOL/L Blood Urea Nitrogen 4 L 7-18 MG/DL Creatinine 0.60 0.60-1.30 MG/DL Estimat Glomerular Filtration Rate > 60 BUN/Creatinine Ratio 7 Glucose Level 87 70-105 MG/DL Calcium Level 9.2 8.5-10.1 MG/DL Corrected Calcium 9.1 8.5-10.1 MG/DL Magnesium Level 1.9 1.8-2.4 MG/DL Total Bilirubin 0.4 0.1-1.0 MG/DL Aspartate Amino Transf (AST/SGOT) 19 5-34 U/L Alanine Aminotransferase (ALT/SGPT) 11 0-55 U/L Alkaline Phosphatase 66 40-136 U/L Troponin T 10 <=10 NG/L Total Protein 6.7 6.4-8.2 GM/DL Albumin 4.1 3.2-4.5 GM/DL Lipase 11 8-78 U/L Urine Color YELLOW Urine Clarity SL CLOUDY Urine pH 7.5 5-9 Urine Specific [place] 1.010 L 1.016-1.022 Urine Protein NEGATIVE NEGATIVE Urine Glucose (UA) NEGATIVE NEGATIVE Urine Ketones NEGATIVE NEGATIVE Urine Nitrite NEGATIVE NEGATIVE Urine Bilirubin NEGATIVE NEGATIVE Urine Urobilinogen 0.2 NORMAL MG/DL Urine Leukocyte Esterase 3+ H NEGATIVE Urine RBC (Auto) 1+ H NEGATIVE Urine RBC RARE /HPF Urine WBC >100 H /HPF Urine Squamous Epithelial Cells 10-25 H /HPF Urine Crystals NONE /LPF Urine Bacteria FEW H /HPF Urine Casts NONE /LPF Urine Mucus NEGATIVE /LPF Urine Culture Indicated YES My Orders Orders - RICKIE ORTIZ DO Promethazine Injection (Phenergan Injec (01/25/19 21:15) Ns Iv 1000 Ml (Sodium Chloride 0.9%) (01/25/19 21:15) Dicyclomine Injection (Bentyl Injection) (01/25/19 21:15) Diphen/Antacid/Lido 1:1:1 (Lidocaine/Ant (01/25/19 21:15) Pantoprazole Injection (Protonix Injecti (01/25/19 21:15) Cbc With Automated Diff (01/25/19 21:04) Comprehensive Metabolic Panel (01/25/19 21:04) Lipase (01/25/19 21:04) Drug Screen Stat (Urine) (01/25/19 21:04) Ua Culture If Indicated (01/25/19 21:04) Magnesium (01/25/19 21:04) Troponin T (01/25/19 21:04) Chest 1 View Ap/Pa Only (01/25/19 21:09) Fibrin Degradation Products (01/25/19 21:09) Antacid Suspension (Mylanta Suspension (01/25/19 21:30) Lidocaine 2% Viscous 15 Ml (Xylocaine Vi (01/25/19 21:30) Ns Iv 1000 Ml (Sodium Chloride 0.9%) (01/25/19 21:24) Urine Culture (01/25/19 21:57) Haloperidol Injection (Haldol Injectio (01/25/19 22:30) Medications Given in ED Current Medications Medications Dose Ordered Sig/Shea Route Start Time Stop Time Status Last Admin Dose Admin Al Hydrox/Mg Hydrox/Simethicone 30 ml ONCE ONCE PO 01/25/19 21:30 01/25/19 21:31 DC 01/25/19 21:40 30 ML Dicyclomine HCl 20 mg ONCE ONCE IM 01/25/19 21:15 01/25/19 21:16 DC 01/25/19 21:39 20 MG Lidocaine HCl 5 ml ONCE ONCE PO 01/25/19 21:30 01/25/19 21:31 DC 01/25/19 21:40 5 ML Promethazine HCl 25 mg ONCE ONCE IVP 01/25/19 21:15 01/25/19 21:16 DC 01/25/19 21:39 25 MG Sodium Chloride 1,000 ml @ STK-MED ONCE .ROUTE 01/25/19 21:24 01/25/19 21:30 DC 01/25/19 21:39 1,000 MLS/HR Vital Signs/I&O 01/25/19 21:44 Temp 96.6 Pulse 84 Resp 15 B/P (MAP) 112/85 (94) Pulse Ox 99 O2 Delivery Room Air Capillary Refill : Progress Note : Progress Note Her EKG does show inverted T waves in V2 V3 and aVL similar to prior EKGs. Will check labs chest x-ray treat symptoms and reassess. Patient's workup negative including negative troponin and EKG more than 6 hours out from the onset of symptoms. I suspect this is more likely her stomach given the location. I do not see any reason for further testing or imaging given she appears well with normal VS, benign PE and workup. UA abnormal but likely contaminated again, will culture. She felt better after initial treatment with protonix, phenergan, GI cocktail but still had some pain. Given Haldol which further relieved her pain. Repeat abdominal exam benign and able to tolerate fluids with no difficulty. Patient aware and agreeable with plan for DC and verbalized understanding of need for short term f/u and strict ED return precautions discussed including worsening pain, fevers, vomiting, or other general concerns. Departure Impression Primary Impression: Chest pain, atypical Additional Impression: Abdominal pain Disposition: 01 HOME, SELF-CARE Condition: Stable Departure-Patient Inst. Referrals: NO,LOCAL PHYSICIAN (Family) Primary Care Physician GABRIEL SHIPMAN APRN (PCP) Primary Care Physician Patient Instructions: Chest Pain That Is Not Caused by the Heart (DC) RICKIE ORTIZ DO Jan 25, 2019 21:00
[2019-01-25] MEDS ORDERED: PANTOPRAZOLE 40 MG (PROTONIX) VIAL IV ONE (21:15)
[2019-01-25] MEDS ORDERED: LIDOCAINE/ANTACID/DIPHENHYDRAMINE 1:1:1 PO PRN (21:15)
[2019-01-25] MEDS ORDERED: DICYCLOMINE 10 MG/ML (BENTYL) 2 ML AMP IM ONE (21:15)
[2019-01-25] MEDS ORDERED: NS 1000 ML IV BAG IV ONE (21:15)
[2019-01-25] MEDS ORDERED: PROMETHAZINE INJ 25 MG/ML (PHENERGAN) AMP IVP ONE (21:15)
[2019-01-25] MEDS ORDERED: NS IV 1000 ML 1,000 ML ONE (21:24)
[2019-01-25 21:29] LABS: HEMATOCRIT 41 % (35-52); HEMOGLOBIN 13.8 G/DL (11.5-16.0); MEAN CORPUSCULAR HEMOGLOBIN 33 PG (25-34); MEAN CORPUSCULAR HGB CONC 34 G/DL (32-36); MEAN CORPUSCULAR VOLUME 97 FL (80-99); MEAN PLATELET VOLUME 12.5 FL (7.4-10.4); PLATELET COUNT 213 10^3/uL (130-400); WHITE BLOOD COUNT 9.2 10^3/uL (4.3-11.0)
[2019-01-25 21:30] LABS: BASOPHILS # (AUTO) 0.1 10^3/uL (0.0-0.1); BASOPHILS % (AUTO) 1 % (0-10); EOSINOPHILS # (AUTO) 0.5 10^3/uL (0.0-0.3); EOSINOPHILS % (AUTO) 6 % (0-10); LYMPHOCYTES # (AUTO) 3.8 X 10^3 (1.0-4.0); LYMPHOCYTES % (AUTO) 41 % (12-44); MONOCYTES # (AUTO) 0.5 X 10^3 (0.0-1.0); MONOCYTES % (AUTO) 5 % (0-12); NEUTROPHILS # (AUTO) 4.3 X 10^3 (1.8-7.8); NEUTROPHILS % (AUTO) 47 % (42-75)
[2019-01-25] MEDS ORDERED: LIDOCAINE 2% VISCOUS 15 ML UDC PO ONE (21:30)
[2019-01-25] MEDS ORDERED: ANTACID SUSP 30 ML UDC (MYLANTA) PO ONE (21:30)
[2019-01-25 21:54] LABS: ALANINE AMINOTRANSFERASE 11 U/L (0-55); ALBUMIN 4.1 GM/DL (3.2-4.5); ALKALINE PHOSPHATASE 66 U/L (40-136); BILIRUBIN,TOTAL 0.4 MG/DL (0.1-1.0); BUN/CREATININE RATIO 7; CALCIUM 9.2 MG/DL (8.5-10.1); CARBON DIOXIDE 25 MMOL/L (21-32); CHLORIDE 99 MMOL/L (98-107); GFR ESTIMATED > 60; GLUCOSE 87 MG/DL (70-105); LIPASE 11 U/L (8-78); MAGNESIUM 1.9 MG/DL (1.8-2.4); POTASSIUM 3.7 MMOL/L (3.6-5.0); SODIUM 139 MMOL/L (135-145); TOTAL PROTEIN 6.7 GM/DL (6.4-8.2)
--- NOTE | 2019-01-25 21:57 | Diagnostic Imaging Report ---
Patient History: Chest pain. Technique: Single frontal view of the chest Comparison: 01/20/2019 FINDINGS: The lung volumes are large. No focal consolidation is seen. No large pleural effusion or pneumothorax is seen. The cardiomediastinal silhouette is normal in size and contour. No acute osseous abnormality is seen. Spinal cord stimulator is noted, appears to be in stable position compared to the prior exam. IMPRESSION: Large lung volumes with no acute pulmonary abnormality seen. Dictated by: Dictated on workstation # [id number]
[2019-01-25 22:13] LABS: BILIRUBIN,URINE NEGATIVE (NEGATIVE); CLARITY,URINE SL CLOUDY; COLOR,URINE YELLOW; GLUCOSE, URINE (UA) NEGATIVE (NEGATIVE); KETONES,URINE NEGATIVE (NEGATIVE); LEUKOCYTE ESTERASE ,URINE 3+ (NEGATIVE); NITRITE,URINE NEGATIVE (NEGATIVE); PH,URINE 7.5 (5-9); PROTEIN,URINE NEGATIVE (NEGATIVE); RBC,URINE RARE /HPF; UROBILINOGEN,URINE 0.2 MG/DL (NORMAL)
[2019-01-25 22:14] LABS: BACTERIA,URINE FEW /HPF; WBC,URINE >100 /HPF
[2019-01-25 22:23] LABS: AMPHETAMINE SCREEN, URINE NEGATIVE (NEGATIVE); BARBITURATE SCREEN URINE NEGATIVE (NEGATIVE); BENZODIAZEPINES SCREEN URINE NEGATIVE (NEGATIVE); CANNABINOID SCREEN, URINE POSITIVE (NEGATIVE); COCAINE SCREEN URINE NEGATIVE (NEGATIVE); METHADONE STAT NEGATIVE (NEGATIVE); METHAMPHETAMINE SCREEN URINE S NEGATIVE (NEGATIVE); OPIATE SCREEN URINE NEGATIVE (NEGATIVE); OXYCODONE STAT NEGATIVE (NEGATIVE); PROPOXYPHENE STAT NEGATIVE (NEGATIVE); TRICYCLIC ANTIDEPRESSANTS SCRE NEGATIVE (NEGATIVE)
[2019-01-25 22:30] VITALS: BP 93/48
[2019-01-25] MEDS ORDERED: HALOPERIDOL 5 MG/ML (HALDOL) AMP IV ONE (22:30)
== END 2019-01-25 22:30 | disposition home or self-care (01) ==
LOC: EDUNIT# 20:47 → ER FS 20:48
DX: R07.89 Other chest pain (principal); R10.12 Left upper quadrant pain; G43.909 Migraine, unspecified, not intractable, without status migrainosus; F31.9 Bipolar disorder, unspecified; Z90.89 Acquired absence of other organs; Z90.710 Acquired absence of both cervix and uterus; Z77.22 Contact with and (suspected) exposure to environmental tobacco smoke (acute) (chronic); Z88.2 Allergy status to sulfonamides; Z88.5 Allergy status to narcotic agent; Z79.82 Long term (current) use of aspirin; Z85.850 Personal history of malignant neoplasm of thyroid; Z82.49 Family history of ischemic heart disease and other diseases of the circulatory system
CPT/HCPCS: 36415; 71045; 80053; 80306; 81000; 83690; 83735; 84484; 85025; 85379; 87088